=== PATIENT | female | born 1950 | race Two or more races ===

== ENCOUNTER 2021-05-12 09:12 | Emergency (ER) | payer OTHER ==
[~2021-05-12] VITALS: Ht 170.2 cm; Wt 72.6 kg
[2021-05-12] MEDS ORDERED: AZITHROMYCIN 500MG/ 250ML 250 ML IV ONE (11:15)
[2021-05-12] MEDS ORDERED: cefTRIAXone 1GM/50ML D5W 50 ML IV ONE (11:15)
[2021-05-12] MEDS ORDERED: DexAMETHasone SOD PHOS 10MG/1ML VIAL INJ IV ONE (11:15)
[2021-05-12 12:10] LABS: Basophils # (auto) 0 10 ^3/uL (0-0.2); Basophils % (auto) 0.7 % (0.0-2.0); Eosinophils # (auto) 0 10 ^3/uL (0-0.8); Eosinophils % (auto) 0.2 % (0.0-7.0); Hematocrit 44.4 % (36.0-46.0); Hemoglobin 14.9 g/dL (12.2-16.2); Lymphocytes # (auto) 1.1 10 ^3/uL (0.4-5.4); Lymphocytes % (auto) 21.5 % (10.0-50.0); Mean Corpuscular Hemoglobin 27.8 pg (28.0-32.0); Mean Corpuscular Hgb Conc. 33.4 g/dL (32.0-36.0); Mean Corpuscular Volume 83.1 fL (80.0-100.0); Monocytes # (auto) 0.8 10 ^3/uL (0-1.3); Monocytes % (auto) 15.2 % (0.0-12.0); Neutrophils # (auto) 3.3 10 ^3/uL (1.6-8.6); Neutrophils % (auto) 62.4 % (37.0-80.0); Nucleated Red Blood Cells % 0.2 %; Red Blood Cells 5.35 10^6/uL (4.0-5.20); Red Cell Distribution Width 14.5 % (11.8-14.3); White Blood Cell 5.2 10^3/uL (4.4-10.8)
[2021-05-12 12:27] LABS: Potassium 3.3 mmol/L (3.5-5.1)
[2021-05-12 12:38] LABS: Albumin 3.2 g/dL (3.4-5.0); BUN/Creatinine Ratio 22.1; Bilirubin, Total 0.6 mg/dL (0.2-1.0); Calcium 8.8 mg/dL (8.5-10.1); Total Protein 7.8 g/dL (6.4-8.2)
[2021-05-12] MEDS ORDERED: ZINC220C8 PO ×2 (17:10→17:13)
[2021-05-12] MEDS ORDERED: AZIT250T9 PO (17:10)
[2021-05-12] MEDS ORDERED: CHOL1CAP47 PO (17:10)
[2021-05-12] MEDS ORDERED: ALBUAER3 IN (17:10)
[2021-05-12] MEDS ORDERED: ASCO500C49 PO (17:10)
[2021-05-12] MEDS ORDERED: GUAI600T23 PO (17:14)
[2021-05-12] MEDS ORDERED: DEX4T PO (17:23)
[2021-05-12] MEDS ORDERED: FAMO20TA10 PO (17:23)
[2021-05-12] MEDS ORDERED: DONE1TAB88 PO (17:24)
[2021-05-12] MEDS ORDERED: METF-370 PO (17:24)
[2021-05-12] MEDS ORDERED: AMLO-496 PO (17:24)
[2021-05-12] MEDS ORDERED: ATOR20TA50 PO (17:24)
[2021-05-12] MEDS ORDERED: LISI-716 PO (17:24)
[2021-05-12 18:04] VITALS: BP 140/90
== END 2021-05-12 21:50 | disposition admitted as inpatient to this hospital (09) ==
LOC: ER 09:12 → EDBD 09:12 → ER 21:50
DX: U07.1 COVID-19 (principal); J12.82 Pneumonia due to coronavirus disease 2019; I10 Essential (primary) hypertension
CPT/HCPCS: 36415; 71045; 80053; 82728; 84484; 85025; 86141; 87426; 93005; 96365; 96366; 96368; 96375; 99291; J0456; J0696; J1100